=== PATIENT | male | born 1970 | race Caucasian/White ===

== ENCOUNTER 2022-03-17 19:49 | Emergency (ER) | payer OTHER, SELFPAY ==
[2022-03-17 20:05] VITALS: BP 155/85; PULSE 100; RESP 18; TEMP 36.6; O2SAT 98; BMI 31.1
--- NOTE | 2022-03-17 20:26 | W.ED.SKABFB ---
HPI - Skin/Abscess/Foreign Bdy General: Chief complaint: Skin/Abscess/Foreign Body Stated complaint: Piece of wood stuck on RT ear Time Seen by Provider: 03/17/22 20:08 History of Present Illness: 51-year-old male patient comes in today with a splinter in the right auricular scalp area. Patient reports his tetanus shot is up-to-date. Patient was working with a locust tree when a branch hit him in the side of the head impaling him with a thorn. The thorn had broken off in the area between his auricle and scalp on the right side. Patient appears well. Patient denies any chronic medical problems. Review of Systems General: Reports: 10 or more systems reviewed and unremarkable except in HPI and below Skin/Breast: Reports: new lesions PFSH ED PFSH: Medical History Decreased libido Depression Erectile dysfunction Fatigue Irregular heart rate Memory impairment Palpitations Surgical History History of ankle surgery History of arthroscopic knee surgery Family History Father Myocardial infarction CAD (coronary artery disease) Lung disease Mother Myocardial infarction CAD (coronary artery disease) Sister CAD (coronary artery disease) Grandfather Suicide Denies family history of Diabetes Clotting disorder Dementia Chronic kidney disease (CKD) Anesthesia complication Bleeding disorder Cancer Stroke Social History Smoking and tobacco status: current some day smoker Alcohol intake: current Alcohol intake frequency: few times a month Physical Exam HENMT: HEAD & SCALP: laceration (Puncture, foreign body visualized, right auricular area scalp) Neck/C-Spine: COMMON NORMALS: full ROM Resp: COMMON NORMALS: normal respiratory effort and clear to auscultation bilaterally AUSCULTATION: clear to auscultation bilaterally Cardio: COMMON NORMALS: regular rate and regular rhythm RATE: regular rate RHYTHM: regular rhythm Extremity: COMMON NORMALS: normal to inspection Skin: TRAUMA: puncture (Foreign body right preauricular scalp area) Procedures Foreign Body Removal Site: other (Scalp clavicular area right side) Description of foreign body: other (thorn) Sedation/Analgesia: other (2% lidocaine) Technique: removal with forceps Confirmed by:: direct visualization Complications: none Course Vital Signs: Vital signs: Vital Signs Temperature 97.8 F 03/17/22 20:05 Pulse Rate 100 03/17/22 20:05 Respiratory Rate 18 03/17/22 20:05 Blood Pressure 155/85 03/17/22 20:05 Pulse Oximetry 98 03/17/22 20:05 MDM - Skin/Abscess/Foreign Bdy Medicial Decision Making 51-year-old male patient comes in with a thorn in the right side of his scalp. It is at the area between the auricle and the parietal scalp. Visible thorn is protruding from the scalp. Patient reported that his tetanus was up-to-date. Vital signs were normal except for some mild elevation of blood pressure. Differential diagnosis includes puncture wound, foreign body, need for prophylaxis tetanus. Patient reported his tetanus was up-to-date. Under local anesthetic the 1 was removed with forceps. Wound was irrigated thoroughly with saline. Patient will be started on Augmentin 1 tablet twice a day for 7 days for prophylaxis therapy. Patient reported understanding of care plan and need for follow-up. Patient has a allergy to penicillins reported but usually takes amoxicillin. Discharge Plan Discharge Patient Disposition: Home Clinical Impression: Foreign body (FB) in soft tissue Condition: Stable Prescriptions: New amoxicillin-pot clavulanate 875-125 mg tablet 1 tab PO BID Qty: 14 0RF Discharge Orders: Discharge ED (Routine); Ordered 03/17/22 Ordered By: Juan Lemon Referrals: Lawson Sanchez MD [Primary Care Provider] - Discharge Diet: Usual diet Discharge Activity: Increase activity as tolerated Patient Instructions: Puncture Wound (ED) Activity Restrictions/Additional Instructions: Keep wound clean and dry. Activity as tolerated. Wash wound gently with mild soap and water daily until healed. Take oral antibiotics 1 tablet twice a day for 7 days. Follow-up with primary care as needed. Return to ER for new concerns or worsening symptoms. Coding Level of Care Code ED Traffic Superintendent for Chase Perez
[2022-03-17] MEDS: amoxicillin-clav 875-125 mg Tablet 1 TAB PO (20:35)
== END 2022-03-17 21:10 | disposition home or self-care (01) ==
PROVIDERS: Emergency Provider Nurse Practitioner Family; PCP Orthopaedic Surgery Foot and Ankle Surgery
DX: M79.5 Residual foreign body in soft tissue (principal); F17.210 Nicotine dependence, cigarettes, uncomplicated
CPT/HCPCS: 99283